=== PATIENT | male | born 1950 | race Caucasian/White ===

== ENCOUNTER 2019-10-08 12:51 | Inpatient (IN) | payer MEDICARE, MEDICAID ==
--- NOTE | 2019-10-08 13:03 | CT ---
EXAM: CT brain without contrast HISTORY: Left-sided weakness and right facial drooping COMPARISON: None TECHNIQUE: Multiple contiguous axial images were obtained and a CT of the brain without contrast. FINDINGS: The brain is normal in morphology and attenuation without focal lesions or confluent areas of infarction. There is no evidence of hydrocephalus, intracranial hemorrhage, or extra-axial fluid collection. The calvarium and overlying soft tissues are unremarkable. The visualized paranasal sinuses and masto id air cells are well aerated. IMPRESSION: No evidence of acute intracranial abnormality Dr. Iyer notified of findings at 1:01 PM on 10/08/2019
--- NOTE | 2019-10-08 13:19 | RAD ---
Portable chest: HISTORY: Stroke protocol COMPARISON: none FINDINGS: Lung centeno are clear. Heart and mediastinum appear unremarkable. Vascularity is normal. Visualized osseous structures unremarkable. IMPRESSION: No acute finding
--- NOTE | 2019-10-08 13:22 | CT ---
Exam: CTA neck with contrast CTA head with contrast HISTORY: Stroke with left-sided weakness and right facial drooping COMPARISON: None TECHNIQUE: 1. Multiple contiguous axial images were obtained and a CTA of the neck with contrast. 3-D sagittal a nd coronal MIP reformats were performed. 2. Multiple contiguous axial images were obtained and a CTA of the head with contrast. 3-D sagittal a nd coronal MIP reformats were performed. FINDINGS: CTA NECK: Aortic arch: Normal origin of the carotid arteries from the arch. No significant atherosclerotic dise ase of the subclavian arteries. Right common carotid artery: No significant atherosclerotic disease or narrowing Left common carotid artery: No significant atherosclerotic disease or narrowing Right internal carotid artery: No significant atherosclerotic disease or narrowing per NASCET criteri a Right external carotid artery: No significant atherosclerotic disease or narrowing Left internal carotid artery: No significant atherosclerotic disease or narrowing per NASCET criteri a Left external carotid artery: No significant atherosclerotic disease or narrowing Right cervical vertebral artery: No significant atherosclerotic disease or narrowing Left cervical vertebral artery: No significant atherosclerotic disease or narrowing No cervical adenopathy. The lung apices are unremarkable. The osseous structures are unremarkable. CTA HEAD: There is opacification of the right mastoid air cells with a small amount of fluid seen in the right middle ear. Right intracranial internal carotid artery: Patent without narrowing or occlusion Right anterior cerebral artery: Patent without narrowing or occlusion Right middle cerebral artery: Patent without narrowing or occlusion Left intracranial internal carotid artery: Patent without narrowing or occlusion Left anterior cerebral artery: Patent without narrowing or occlusion Left middle cerebral artery: Patent without narrowing or occlusion No aneurysmal dilatation is seen in the anterior circulation. Right vertebral artery: Patent without narrowing or occlusion Left vertebral artery: Patent without narrowing or occlusion Basilar artery: Patent without narrowing or occlusion The posterior cerebral arteries and cerebellar arteries are patent without narrowing or occlusion. No aneurysmal dilatation is seen in the posterior circulation. IMPRESSION: 1. No significant CTA abnormality of the neck 2. No significant CTA abnormality of the head
[2019-10-08 13:41] LABS: #Eosinphils 0.1 thou/uL (0.0-0.7); #Lymphocytes 0.9 thou/uL (1.20-3.40); #Monocytes 0.7 thou/uL (0.11-0.59); #Neutrophils 6.3 thou/uL (1.40-6.50); %Basophils 0.6 % (0.0-1.0); %Eosinophils 0.8 % (0.0-10.0); %Lymphocytes 11.4 % (21.0-51.0); %Monocytes 8.7 % (0.0-10.0); %Neutrophils 78.6 % (42.0-75.0); Mean Corpuscular HGB CONC 33.2 g/dL (32.0-36.0); Mean Corpuscular Volume 96.3 fL (78.0-98.0); Platelet Count 264 thou/uL (130-400); RBC Distribution Width 11.4 % (11.5-14.5); Red Blood Cell (RBC) Count 4.07 mill/uL (4.70-6.10)
[2019-10-08 13:46] LABS: INR-International Normal Ratio 1.1; PTT 28.7 SEC (22.9-36.1); Prothrombin Time 13.8 SEC (12.0-14.7)
[2019-10-08] MEDS ORDERED: Aspirin Chewable 81 MG TAB ONE (13:49)
[2019-10-08 13:52] LABS: ALT (SGPT) 13 U/L (8-55); AST (SGOT) 23 U/L (5-34); Albumin 3.8 g/dL (3.4-4.8); Alkaline Phosphatase 86 U/L (40-110); Anion Gap 16 mmol/L (10-20); BUN (Urea Nitrogen) 24 mg/dL (8.4-25.7); Bilirubin, Total 0.4 mg/dL (0.2-1.2); Calc. Creatinine Clearance 0 mL/min (70-130); Calcium 9.1 mg/dL (7.8-10.44); Carbon Dioxide 23 mmol/L (23-31); Chloride 100 mmol/L (98-107); Estimated GFR-MDRD 77; Globulin 2.8 g/dL (2.4-3.5); Glucose 116 mg/dL (80-115); Potassium 3.9 mmol/L (3.5-5.1); Protein, Total 6.6 g/dL (5.8-8.1); Sodium 135 mmol/L (136-145)
[2019-10-08] MEDS ORDERED: Iopamidol-370 76% 500 ML 1 ML ONE (13:55)
[2019-10-08 15:19] LABS: Bacteria/HPF None Seen HPF (None Seen); Bilirubin Negative (Negative); Blood, Urine Trace (Negative); Calcium Oxalate Crystals Rare HPF (None Seen); Clarity Clear (Clear); Glucose, Urine (Dipstick) Normal (Negative); Leukocyte 25 Leu/uL (Negative); Nitrite Negative (Negative); Protein, Urine (Dipstick) Negative (Neg-Trace); Squamous Epithelial None Seen HPF (0-3); Urobilinogen Normal mg/dL (Less than 2)
--- NOTE | 2019-10-08 15:41 | RAD ---
EXAM: 2 views of the left hip HISTORY: Left hip pain COMPARISON: None FINDINGS: 2 views of the left hip shows no evidence of acute fracture or dislocation. No degenerative changes are seen. No soft tissue swelling is present. Contrast is seen in the bladder and right ureter from prior contrast administration. No contrast is seen in the left ureter. IMPRESSION: No evidence of acute osseous abnormality.
[2019-10-08 17:23] LABS: Troponin I Less than 0.010 ng/mL (< 0.028)
[2019-10-08] MEDS ORDERED: Ondansetron PF 4 MG/2 ML Vial ONE (17:33)
[2019-10-08] MEDS ORDERED: Acetaminophen 325 MG TAB PO PRN (18:34)
[2019-10-08 18:55] VITALS: BMI 30.7
[2019-10-08 21:03] LABS: Troponin I Less than 0.010 ng/mL (< 0.028)
--- NOTE | 2019-10-08 21:20 | PDOC.HHP ---
Hospitalist HPI - History of Present Illness Left leg not working. Abd pain, nausea and vomniting, back and hip pain History of Present Illness: 69 YO M with a PMH of HTN, DM, CVA, Biplar d/o, GERD who was brought into the Er by his family on account account of sudden loss of movement in his left LE. Pt has always had mild LE but noted new onset inability to move his left leg. He was noted to be dragging his left leg. Pt was brought in as a stroke w/u. He had a CT brain and a CTA brain which were negative. However upon admission, pt has new complaints he is c/o severe abd pain and tenderness, with abd distention He feel he has an acute GERD exacerbation. He's also c/o severe pain in his lumbar area as well as left him. He denies hx of fever or chills or prior falls. Pt has been admitted for further admission. Hospitalist ROS - Review of Systems Constitutional: reports: weakness. denies: fever, chills, sweats, malaise, other Eyes: denies: pain, vision change, conjunctivae inflammation, eyelid inflammation, redness, other ENT: reports: ear pain Respiratory: denies: cough, dry, shortness of breath, hemoptysis, SOB with excertion, pleuritic pain, sputum, wheezing, other Cardiovascular: denies: chest pain, palpitations, orthopnea, paroxysmal noc. dyspnea, edema, light headedness, other Gastrointestinal: reports: nausea, vomiting, abdominal pain. denies: diarrhea, constipation, melena, hematochezia, other Genitourinary: denies: dysuria, frequency, incontinence, hematuria, retention, other Musculoskeletal: denies: neck pain, shoulder pain, arm pain, back pain, hand pain, leg pain, foot pain, other Neurological: reports: weakness, numbness. denies: incoordination, change in speech, confusion, seizures, other Hospitalist History - Past Medical History Cardiac: reports: HTN Pulmonary: reports: CVA/TIA/stroke Gastrointestinal: reports: GERD Psych: reports: Bipolar Musculoskeletal: reports: Chronic low back pain Renal/: reports: Benign prostatic enlarg. Endocrine: reports: Diabetes - Past Surgical History Past Surgical History: reports: Other Other Surgical History: Bladder Sx - Family History Family History: reports: diabetes mellitus - Social History Smoking Status: Never smoker Alcohol: reports: None Drugs: reports: none Living Situation: With Family Domestic Violence: Negative - Exam General Appearance: ill appearing Eye: PERRL, anicteric sclera ENT: normocephalic atraumatic, no oropharyngeal lesions, moist mucosa Neck: supple, symmetric, no JVD, no thyromegaly Heart: RRR, no murmur, no gallops, no rubs, normal peripheral pulses Respiratory: CTAB, no wheezes, no rales, no ronchi, normal chest expansion Gastrointestinal: soft, normal bowel sounds Gastrointestinal - other findings: Pt abd is grossly tender and mildly distended Extremities: no cyanosis, no clubbing, no edema Skin: normal turgor, no lesions, no rashes Neurological: cranial nerve grossly intact, no focal deficits Musculoskeletal: normal tone, normal strength, no muscle wasting Musculoskeletal - other findings: Decreased strength in LLE Psychiatric: normal affect, normal behavior, A&O x 3 Hospitalist Results - Labs Result Diagrams: 10/08/19 13:27 10/08/19 13:27 Lab results: WBC 8.0 thou/uL (4.8-10.8) 10/08/19 13:27 Hgb 13.0 g/dL (14.0-18.0) L 10/08/19 13:27 Hct 39.2 % (42.0-52.0) L 10/08/19 13:27 MCV 96.3 fL (78.0-98.0) 10/08/19 13:27 Plt Count 264 thou/uL (130-400) 10/08/19 13:27 Neutrophils % 78.6 % (42.0-75.0) H 10/08/19 13:27 Sodium 135 mmol/L (136-145) L 10/08/19 13:27 Potassium 3.9 mmol/L (3.5-5.1) 10/08/19 13:27 Chloride 100 mmol/L (98-107) 10/08/19 13:27 Carbon Dioxide 23 mmol/L (23-31) 10/08/19 13:27 BUN 24 mg/dL (8.4-25.7) 10/08/19 13:27 Creatinine 0.97 mg/dL (0.7-1.3) 10/08/19 13:27 Glucose 116 mg/dL (80-115) H 10/08/19 13:27 Calcium 9.1 mg/dL (7.8-10.44) 10/08/19 13:27 Total Bilirubin 0.4 mg/dL (0.2-1.2) 10/08/19 13:27 AST 23 U/L (5-34) 10/08/19 13:27 ALT 13 U/L (8-55) 10/08/19 13:27 Alkaline Phosphatase 86 U/L (40-110) 10/08/19 13:27 Troponin I Less than 0.010 ng/mL (< 0.028) 10/08/19 20:25 Serum Total Protein 6.6 g/dL (5.8-8.1) 10/08/19 13:27 Albumin 3.8 g/dL (3.4-4.8) 10/08/19 13:27 Urine Ketones Negative mg/dL (Negative) 10/08/19 15:00 Urine Blood Trace (Negative) A 10/08/19 15:00 Urine Nitrite Negative (Negative) 10/08/19 15:00 Ur Leukocyte Esterase 25 Kim/uL (Negative) 10/08/19 15:00 Urine RBC 7-10 HPF (0-3) A 10/08/19 15:00 Urine WBC 4-6 HPF (0-3) A 10/08/19 15:00 Ur Squamous Epith Cells None Seen HPF (0-3) 10/08/19 15:00 Urine Bacteria None Seen HPF (None Seen) 10/08/19 15:00 Hospitalist H&P A/P - Problem (1) Abdominal pain Code(s): R10.9 - UNSPECIFIED ABDOMINAL PAIN Status: Acute Qualifiers: Abdominal location: generalized Qualified Code(s): R10.84 - Generalized abdominal pain Assessment and Plan: Unclear etiology. Will like to r/o a perforation vs acute GERD, will keep NPO, check KUB and CT abd . Give PPI and pain meds. (2) CVA (cerebral vascular accident) Code(s): I63.9 - CEREBRAL INFARCTION, UNSPECIFIED Status: Acute Assessment and Plan: Pt has new onset LLE inability. Will get MRI brain and Lumbar CT, will f/u with results. (3) Nausea & vomiting Code(s): R11.2 - NAUSEA WITH VOMITING, UNSPECIFIED Status: Acute Assessment and Plan: May be from GERD. Will give Zofran (4) GERD (gastroesophageal reflux disease) Code(s): K21.9 - GASTRO-ESOPHAGEAL REFLUX DISEASE WITHOUT ESOPHAGITIS Status: Acute Qualifiers: Esophagitis presence: without esophagitis Qualified Code(s): K21.9 - Gastro -esophageal reflux disease without esophagitis Assessment and Plan: start PPI (5) HTN (hypertension) Code(s): I10 - ESSENTIAL (PRIMARY) HYPERTENSION Status: Acute Qualifiers: Hypertension type: essential hypertension Qualified Code(s): I10 - Essential (primary) hypertension Assessment and Plan: Unsure if pt has an acute CVA will allow permissive HTN (6) Diabetes Code(s): E11.9 - TYPE 2 DIABETES MELLITUS WITHOUT COMPLICATIONS Status: Acute Qualifiers: Diabetes mellitus type: type 2 Diabetes mellitus complication status: without complication Assessment and Plan: Hold all meds as pt will be NPO. Cover with SSI (7) BPH (benign prostatic hyperplasia) Code(s): N40.0 - BENIGN PROSTATIC HYPERPLASIA WITHOUT LOWER URINRY TRACT SYMP Status: Acute Qualifiers: Lower urinary tract symptom detail: urinary obstruction Assessment and Plan: With outlet obstruction. Cont with indwelling hampton. - Plan Plan: PPx: SCDs and PPI. CODE: FULL. Dispo: Admit as inpt.
[2019-10-08] MEDS ORDERED: HYDROcodone/Acetaminophen 5/325 mg Tablet PO PRN (21:30)
[2019-10-08] MEDS ORDERED: HYDROcodone/Acetaminophen 10/325 mg Tablet PO PRN (21:30)
[2019-10-08] MEDS ORDERED: Ondansetron PF 4 MG/2 ML Vial IVP PRN (21:30)
[2019-10-08] MEDS ORDERED: Sodium Chloride 0.9% (PF) 10 ML VIAL FS PRN (21:35)
[2019-10-08] MEDS ORDERED: Morphine 2 MG/ML SYRINGE SLOW IVP PRN (21:35)
--- NOTE | 2019-10-08 21:49 | RAD ---
EXAM: XR Abdomen 1 View/KUB PROVIDED CLINICAL HISTORY: Severe abdominal tenderness COMPARISON: 01/31/2014 FINDINGS: Bowel gas pattern is nonspecific with moderate amount of retained fecal material seen in the region o f the ascending and transverse colon as well as in the rectum. There is contrast seen within a mildly dilated right renal collecting system. No suspicious calcifications are seen. A suprapubic cat heter versus Pompa catheter overlies the midline of the pelvis. IMPRESSION: 1. Moderate amount retained fecal material in the ascending colon and in the rectum. 2. Mild right hydronephrosis as evidenced by residual contrast in right renal collecting system.
--- NOTE | 2019-10-08 22:01 | CT ---
CT Abdomen Pelvis WO Con 10/08/2019 8:56 PM HISTORY: Abdominal distention and abdominal pain. Nausea and vomiting. Lower back pain. History of neurogenic bladder. COMPARISON: 03/24/2016 Technique: Multiple contiguous axial CT images are obtained through the abdomen and pelvis without IV contrast. Coronal reformats are provided. FINDINGS: This examination is limited for the evaluation of solid organs and vascular structures due to the lac k of intravenous contrast. Lower Chest: Calcified granuloma is present the right lung base. Lung bases are otherwise clear. Abdomen: Liver: Grossly normal non-enhanced CT appearance. Gallbladder: Vicarious excretion of contrast in the gallbladder related to recent contrasted study. Pancreas: Grossly normal nonenhanced CT appearance. Spleen: Grossly normal nonenhanced CT appearance. Adrenals: Grossly normal nonenhanced CT appearance. Kidneys: There is mild right hydronephrosis and hydroureter with contrast seen in the right renal col lecting system and ureter due to recent contrasted exam. A suprapubic catheter is noted in place, but the tip of the suprapubic catheter is seen extending into the region of the right UVJ and is like ly the etiology for partial obstruction on the right. The left kidney demonstrates a normal nonenhanced CT appearance, and there is no hydronephrosis seen on the left. Left ureter is not dilate d, and there is contrast seen in portions of the left ureter. Pelvis: Urinary bladder: Suprapubic catheter is noted in place in the urinary bladder is mostly decompressed. Logan of the urinary bladder are mildly thickened. Reproductive Organs: No pelvic masses. Lymph Nodes: No enlarged lymph nodes. Bowel: There is a moderate amount of retained fecal material seen in the ascending transverse colon w ith larger amount of retained fecal material seen in the rectum, and the rectum is dilated measuring 7.6 cm suggesting fecal impaction. Peritoneum: No free fluid, free air, or fluid collection. Retroperitoneum: within normal limits. Vessels: Vascular calcifications are again seen in the abdominal aorta and involving the iliac arteri es.. Abdominal Wall: within normal limits. Bones: No suspicious lytic or sclerotic osseous lesions are identified. Bone island is again seen wit hin the left proximal femur. IMPRESSION: 1. Right hydronephrosis and hydroureter secondary to the tip of the suprapubic catheter extending int o the region of the right UVJ. 2. No left hydronephrosis is present. Contrast is seen in the renal collecting systems and each urete r related to recent contrasted exam. This precludes evaluation for renal calculi. 3. Evidence of fecal impaction with large amount of retained fecal material in the rectum which is di lated measuring 7.6 cm. There is a moderate amount of retained fecal material in the ascending and transverse colon. 4. Mild thickening of the logan the urinary bladder. Urinary bladder is mostly decompressed.
--- NOTE | 2019-10-08 22:50 | CT ---
CT PELVIS: History: Left hip pain. FINDINGS: As noted on CT of the abdomen/pelvis obtained on this date, a suprapubic catheter is noted in place w ith the tip of the suprapubic catheter tubing extending into the region of the right UVJ resulting in at least partial obstruction of the right ureter with dilatation of the right ureter with persistent contrast in the right ureter from prior contrasted exam. The urinary bladder is mostly decompressed, but the logan of the urinary bladder are mildly thickened with minimal adjacent inflammatory changes. Findings could be related to cystitis in the correct cli nical scenario but thickening of the urinary bladder wall could be related to long-standing neurogeni c bladder. There is a large amount of retained fecal material seen in the rectum which is dilated as described o n CT abdomen/pelvis. Images are suggestive of fecal impaction. A sclerotic lesion is seen within the left femoral head/neck junction which demonstrates what appears to be interdigitated margins, probably representing a prominent bone island, larger in size compared to the study in 2016. This density measures 7 mm. No fracture is seen involving the pelvis. There is no evidence of dislocation involving the hips bila terally. IMPRESSION: 1. Partial obstruction of right ureter secondary to suprapubic catheter tip extending into the right UVJ resulting in obstruction. 2. Thickening of the logan of the urinary bladder with adjacent minimal daniel vesicle inflammatory rasheed nges. Findings could be related to cystitis in the correct clinical scenario. 3. Evidence of fecal impaction with a large amount of retained fecal material in the rectum which is dilated. 4. No acute osseous abnormality is seen. 5. Density left femoral head/neck junction, probably related to a bone island. POS: JUAN M
[2019-10-08] MEDS ORDERED: Aluminum & Magnesium Hydroxide 60 ML, Lidocaine 2% Viscous Solution 30 ML, diphenhydrAM... SSW ONE (23:00)
[2019-10-09 05:20] LABS: #Basophils 0.1 thou/uL (0.0-0.2); #Eosinphils 0.2 thou/uL (0.0-0.7); #Lymphocytes 2.3 thou/uL (1.20-3.40); #Monocytes 0.8 thou/uL (0.11-0.59); #Neutrophils 3.8 thou/uL (1.40-6.50); %Basophils 0.9 % (0.0-1.0); %Eosinophils 2.9 % (0.0-10.0); %Lymphocytes 31.4 % (21.0-51.0); %Monocytes 11.2 % (0.0-10.0); %Neutrophils 53.6 % (42.0-75.0); Hemoglobin 13.4 g/dL (14.0-18.0); Mean Corpuscular Hemoglobin 31.6 pg (27.0-31.0); Mean Corpuscular Volume 98.9 fL (78.0-98.0); Platelet Count 259 thou/uL (130-400); RBC Distribution Width 11.6 % (11.5-14.5); Red Blood Cell (RBC) Count 4.25 mill/uL (4.70-6.10); White Blood Cell (WBC) Count 7.2 thou/uL (4.8-10.8)
[2019-10-09 06:11] LABS: BUN (Urea Nitrogen) 15 mg/dL (8.4-25.7); Calc. Creatinine Clearance 72 mL/min (70-130); Carbon Dioxide 18 mmol/L (23-31); Chloride 106 mmol/L (98-107); Estimated GFR-MDRD Greater than 90; Glucose 106 mg/dL (80-115); Potassium 5.3 mmol/L (3.5-5.1); Sodium 135 mmol/L (136-145)
[2019-10-09 06:12] LABS: Anion Gap 16 mmol/L (10-20)
[2019-10-09] MEDS: Enoxaparin Sodium 40 MG/0.4 ML SYRINGE SC SCH (08:58)
[2019-10-09] MEDS: Pantoprazole 40 MG VIAL IVP SCH ×2 (09:01→21:25)
[2019-10-09] MEDS ORDERED: Mineral Oil ENEMA PR SCH (11:30)
[2019-10-09] MEDS ORDERED: Magnevist 469MG/ML 20 ML VIAL ONE ×2 (13:35→13:36)
--- NOTE | 2019-10-09 13:52 | MRI ---
EXAM: MRI of the brain without contrast HISTORY: Right facial drooping COMPARISON: 10/02/2014 TECHNIQUE: Multiplanar multisequence MR images were obtained of the brain without IV contrast. FINDINGS: The brain demonstrates normal signal intensity on all obtained sequences. No restricted diffusion. No hydronephrosis. No extra-axial fluid collection or intracranial hemorrhage. The expected flow voids are present. Corpus callosum, pituitary, and craniocervical junction are within normal limits. The calvarium and overlying soft tissues are unremarkable. The paranasal sinuses and mastoid air cells are well aerated. IMPRESSION: No evidence of acute intracranial abnormality.
--- NOTE | 2019-10-09 17:29 | PDOC.HOSPP ---
- Subjective Subjective: Pt feels somewhat better today. - Objective Vital Signs & Weight: Vital Signs (12 hours) Temp Pulse Pulse Pulse Resp BP BP 10/09/19 15:37 99.0 F 63 14 10/09/19 11:22 98.2 F 100 19 10/09/19 10:39 72 74 119/72 121/74 10/09/19 07:44 98.6 F 78 16 BP Pulse Ox 10/09/19 15:37 111/67 99 10/09/19 11:22 101/61 72 L 10/09/19 10:39 10/09/19 07:44 120/72 98 Weight Weight 132 lb I&O: 10/08/19 10/09/19 10/10/19 06:59 06:59 06:59 Output Total 1150 430 Balance -1150 -430 Result Diagrams: 10/09/19 04:35 10/09/19 04:35 Hospitalist ROS - Review of Systems Constitutional: denies: fever, chills, sweats, weakness, malaise, other Eyes: denies: pain, vision change, conjunctivae inflammation, eyelid inflammation, redness, other ENT: denies: ear pain, ear discharge, nose pain, nose discharge, nose congestion , mouth pain, mouth swelling, throat pain, throat swelling, other Respiratory: denies: cough, dry, shortness of breath, hemoptysis, SOB with excertion, pleuritic pain, sputum, wheezing, other Cardiovascular: denies: chest pain, palpitations, orthopnea, paroxysmal noc. dyspnea, edema, light headedness, other Gastrointestinal: reports: abdominal pain. denies: nausea, vomiting, diarrhea, constipation, melena, hematochezia, other Genitourinary: denies: dysuria, frequency, incontinence, hematuria, retention, other Musculoskeletal: reports: back pain. denies: neck pain, shoulder pain, arm pain , hand pain, leg pain, foot pain, other Skin: denies: rash, lesions, angela, bruising, other Neurological: reports: weakness. denies: numbness, incoordination, change in speech, confusion, seizures, other Other: Still unable to move his LLE. - Medication Medications: Active Medications Generic Name Dose Route Start Last Admin Trade Name Freq PRN Reason Stop Dose Admin Enoxaparin Sodium 40 mg 10/09/19 09:00 10/09/19 08:58 Lovenox SC 40 mg 0900 NBA Administration Pantoprazole Sodium 40 mg 10/09/19 09:00 10/09/19 09:01 Protonix IVP 40 mg Q12HR NBA Administration - Exam General Appearance: NAD, awake alert Eye: PERRL, anicteric sclera ENT: normocephalic atraumatic, no oropharyngeal lesions, moist mucosa Neck: supple, symmetric, no JVD, no thyromegaly, no lymphadenopathy Heart: RRR, no murmur, no gallops, no rubs, normal peripheral pulses Respiratory: CTAB, no wheezes, no rales, no ronchi, normal chest expansion Gastrointestinal: soft, normal bowel sounds Gastrointestinal - other findings: slightly tender, slightly distemded Extremities: no cyanosis, no clubbing, no edema Skin: normal turgor, no lesions, no rashes Neurological: cranial nerve grossly intact, no focal deficits Musculoskeletal: normal tone, normal strength, no muscle wasting Psychiatric: normal affect, normal behavior, A&O x 3 Hosp A/P (1) Constipation Code(s): K59.00 - CONSTIPATION, UNSPECIFIED Status: Acute Plan: Likely cause of abd pain. Will give enema and Lactulose. Monitor for BM. Start on daily Miralax. - Plan - Problem (1) Abdominal pain Code(s): R10.9 - UNSPECIFIED ABDOMINAL PAIN Status: Acute Qualifiers: Abdominal location: generalized Qualified Code(s): R10.84 - Generalized abdominal pain Assessment and Plan: Unclear etiology. CT scan shows large burden of constipation and urinary obstruction and hydronephrosis. This is likely reason for pt's pain Urology has been consult, will treat constipation. Will resume diet. Give PPI and pain meds. (2) CVA (cerebral vascular accident) Code(s): I63.9 - CEREBRAL INFARCTION, UNSPECIFIED Status: Acute Assessment and Plan: Pt has new onset inability to move his LLE. MRI brain and Lumbar CT are both neg. Pt and his family are still concerned why he had a sudden inability to move his LLE, so will get MRI of lumbar spine. Will f/u results. Cont PT/OT. (3) Nausea & vomiting Code(s): R11.2 - NAUSEA WITH VOMITING, UNSPECIFIED Status: Acute Assessment and Plan: May be from GERD vs constipation. Will give Zofran, monitor for symp relief. (4) GERD (gastroesophageal reflux disease) Code(s): K21.9 - GASTRO-ESOPHAGEAL REFLUX DISEASE WITHOUT ESOPHAGITIS Status: Acute Qualifiers: Esophagitis presence: without esophagitis Qualified Code(s): K21.9 - Gastro -esophageal reflux disease without esophagitis Assessment and Plan: Cont PPI (5) HTN (hypertension) Code(s): I10 - ESSENTIAL (PRIMARY) HYPERTENSION Status: Acute Qualifiers: Hypertension type: essential hypertension Qualified Code(s): I10 - Essential (primary) hypertension Assessment and Plan: No CVA seen on MRI, will resume prior home BP meds. (6) Diabetes Code(s): E11.9 - TYPE 2 DIABETES MELLITUS WITHOUT COMPLICATIONS Status: Acute Qualifiers: Diabetes mellitus type: type 2 Diabetes mellitus complication status: without complication Assessment and Plan: Pt will now be started on a DM diet, will resume home meds. Cover with SSI (7) BPH (benign prostatic hyperplasia) Code(s): N40.0 - BENIGN PROSTATIC HYPERPLASIA WITHOUT LOWER URINRY TRACT SYMP Status: Acute Qualifiers: Lower urinary tract symptom detail: urinary obstruction Assessment and Plan: With outlet obstruction. Cont with indwelling hampton. Urology has been consulted. Plan: Discussed with pts' POA on the phone and updated her. PPx: SCDs and PPI. CODE: FULL. Dispo: Cont current mgt.
--- NOTE | 2019-10-09 18:01 | MRI ---
MRI THORACIC SPINE WITH AND WITHOUT CONTRAST: Indications: Bilateral leg weakness. FINDINGS: Thoracic vertebrae maintain normal height and alignment. Vertebral body signal is normal. There are m ild degenerative changes noted with very mild spurring. No evidence of vertebral body lesion. Review of the disc spaces shows a small focal protrusion paracentrally on the right at T2-3. This eff aces the anterior subarachnoid space on the right and impinges on the anterior cord on the right at t his level, best seen on axial T2. No other significant disc bulge or protrusion identified. Thoracic cord signal appears normally preserved. There is some heterogeneity in the cord on T2 axial which is felt to primarily be due to motion artifact. There is no abnormal enhancement seen within the cord on post contrast study. IMPRESSION: 1. Focal disc protrusion on the right at T2-3. 2. Thoracic spine otherwise unremarkable. No evidence of thoracic cord abnormality identified. POS: SACHIN
--- NOTE | 2019-10-09 18:13 | MRI ---
MRI OF LUMBAR SPINE PERFORMED WITH AND WITHOUT CONTRAST ENHANCEMENT: History: Bilateral leg weakness. Patient cannot walk, by history. Comparison: 10-08-2019 CT examination. FINDINGS: The vertebral bodies are normal in height. Disc space height all appears fairly well preserved. No si gnificant periaortic adenopathy. Right sided hydronephrosis and hydroureter again noted. This was not ed on the previous CT examination. There is motion artifact which degrades detail, particularly on th e contrast portion of the study. Review of the disc levels show degenerative facet changes along the course of the spine. There is no significant disc narrowing at any of the vertebral body levels and n o significant foraminal stenosis. Some minimal disc bulge at the L4-5 level. No signs of any epidural collection. No areas of abnormal contrast enhancement are appreciated on the somewhat limited post c ontrast study due to motion. IMPRESSION: 1. Moderate right sided hydronephrosis and hydroureter which has been previously described on previou s CT. 2. No signs of canal or foraminal stenosis. No signs of any type of discitis type change. POS: JUAN M
--- NOTE | 2019-10-09 23:12 | CON ---
DATE OF CONSULTATION: 10/09/2019 CONSULTING: Hospitalist. REASON FOR CONSULTATION: Hydronephrosis with SP tube. HISTORY OF PRESENT ILLNESS: Mr. Church is a 69-year-old white male, who is well known to me for his history of hypertension, diabetes, CVA, and bipolar disease with mental handicaps, who is currently managed with an SP tube. He does have elements of neurogenic bladder along with obstructive features and due to his comorbidities and poorly functioning bladder, has elected for indwelling SP tube indefinitely. He is managed in our office with this. He came into the hospital with severe abdominal pain and tenderness with distention. He has been having yellow non bilious vomiting along with very poor appetite. He ultimately underwent a CT scan which demonstrated severe fecal impaction with a large amount of stool in the rectum, which was dilated up to 7.6 cm. The fecal impaction had gone all the way back to the ascending colon. Also of note, there was right hydronephrosis and right hydroureter going down to the ureterovesical junction, where the tip of the suprapubic catheter was extending into the same region. There was no left hydronephrosis present. Ureteral calculi could not be entirely excluded secondary to contrast being administered and contrast being present within the ureter. On my discussion with the patient, he is still complaining of abdominal pain. He has not vomited recently, but he has no appetite. He is having a lot of bladder spasms and discomfort with his SP tube. He denies any flank pain and states that all of his pain has been in his abdominal area. His urine has been clear and he denies any hematuria. He has not had any fevers. Of note, he has already been given an enema as well as lactulose and bowel movement has not yet occurred. ALLERGIES: PENICILLIN. HOME MEDICATIONS: 1. Aspirin. 2. Humalog. 3. Levemir FlexTouch. 4. B12. 5. Vitamin D3 with calcium. 6. Singulair. 7. Metformin. 8. Furosemide. 9. Levaquin. 10. Colace. 11. Cozaar. 12. Oxybutynin extended release. 13. Atorvastatin. 14. Trazodone. PAST MEDICAL HISTORY: 1. Hypertension. 2. History of CVA and TIA. 3. Gastroesophageal reflux disease. 4. Bipolar disease. 5. Chronic lower back pain. 6. BPH. 7. Diabetes mellitus type 2. 8. Urinary retention. PAST SURGICAL HISTORY: SP tube placement. FAMILY HISTORY: Significant for diabetes mellitus. SOCIAL HISTORY: The patient does not smoke. He does not drink alcohol. He does not use any illicit drugs. He currently lives with his family. REVIEW OF SYSTEMS: A 12-point review of systems is reviewed and negative other than what was commented on the HPI. PHYSICAL EXAMINATION: VITAL SIGNS: Temperature 99, pulse 63, respirations 14, blood pressure 111/67, saturation 99% on room air. GENERAL: No apparent distress, communicative and alert, well-nourished, well-developed, appears stated age, answering questions relatively appropriately. HEENT: Normocephalic, atraumatic. Pupils are symmetric and round. Sclerae are nonicteric. Moist mucous membranes. Trachea midline. CARDIOVASCULAR: Regular rate and rhythm. Normal S1, S2. Symmetric pulses. CHEST: No increased work of breathing, symmetric expansion. LUNGS: Clear anteriorly. ABDOMEN: Soft, moderately distended, mildly tender to palpation in all quadrants, specifically in the hypogastric area. SP tube is currently in good location, draining clear yellow urine. No surrounding erythema or cellulitis. No organomegaly. No rebound, guarding, or peritoneal signs. Positive bowel sounds. : Penis is uncircumcised, nonfocal, no lesions. Bilateral descended testes. RECTAL: Deferred at this time. EXTREMITIES: No clubbing, cyanosis, or edema. MUSCULOSKELETAL: No joint deformities or joint erythema noted. Full range of motion. SKIN: Warm and dry. No rashes or lesions. Good turgor. PSYCHIATRIC: Alert and oriented x2. Appropriate mood and affect. There is some MR present, but patient for the most part, able to communicate appropriately and answer questions correctly. LABORATORY DATA: On laboratory evaluation, full set of labs are in the [employer] system, which I have reviewed. Of note, the patient's white count is 7.2 with hemoglobin of 13.4. Creatinine is currently 0.83, sodium of 135. CT with contrast on October 08 demonstrates right hydronephrosis and hydroureter secondary to the suprapubic catheter, which is extending into the region of the right UVJ. No left hydronephrosis could not be evaluated secondary to contrast, significant fecal impaction with a dilated rectum up to 7.6 cm and stool all the way up to the ascending colon. ASSESSMENT AND PLAN: A 69-year-old white male with severe fecal impaction resulting in obstipation, likely abdominal distention and nausea and vomiting. This appears to all be secondary to his severe constipation. The patient is already receiving enemas and lactulose. If this is unsuccessful, may consider a black and white treatment with cascara and milk of magnesia. If that is also unsuccessful, would recommend manual disimpaction as majority of the patient's problem is being stemmed by his constipation. This also with the amount of rectal dilation cause elevation of the bladder and push the bladder toward the suprapubic catheter, which can result in the hydronephrosis either from the stool impaction or from pushing the catheter tip into the ureterovesical junction. I have changed to suprapubic catheter today to a 22-Vietnamese Pom[place] catheter with 10 mL balloon, which should decrease the catheter tip size and get it further away from the ureterovesical junction, which should help the hydronephrosis, but ultimately the problem is not the SP tube or his bladder, but just the constipation. This needs to be aggressively managed, which has already been started. From my standpoint, I do not think there is anything further, but I would that I need to do, but I recommend that once the patient has been completely cleaned out from his bowels, would recommend repeating a renal ultrasound the day after he has been completely disimpacted. If there is persistence of hydronephrosis, would recommend getting a CT without contrast to evaluate for stone disease. I will continue to follow along and make recommendations as needed. PROCEDURE REPORT: The patient had an SP tube changed under sterile technique. The patient's old suprapubic catheter was removed. A 22-Vietnamese Pom[place] catheter with 10 mL balloon was inserted without any difficulty into the patient's bladder. 10 mL of sterile water was placed into the balloon and hooked up to gravity drainage. The patient tolerated the procedure well. Job ID: [id number]
[2019-10-10 05:46] LABS: %Basophils 1.5 % (0.0-1.0); %Eosinophils 2.7 % (0.0-10.0); %Lymphocytes 27.6 % (21.0-51.0); %Monocytes 8.2 % (0.0-10.0); Hemoglobin 13.4 g/dL (14.0-18.0); Mean Corpuscular HGB CONC 32.8 g/dL (32.0-36.0); Mean Corpuscular Hemoglobin 31.3 pg (27.0-31.0); Mean Corpuscular Volume 95.4 fL (78.0-98.0); Mean Platelet Volume 7.1 fL (7.4-10.4); Platelet Count 286 thou/uL (130-400); RBC Distribution Width 11.5 % (11.5-14.5); Red Blood Cell (RBC) Count 4.28 mill/uL (4.70-6.10); White Blood Cell (WBC) Count 8.2 thou/uL (4.8-10.8)
[2019-10-10 05:47] LABS: #Basophils 0.1 thou/uL (0.0-0.2); #Eosinphils 0.2 thou/uL (0.0-0.7); #Lymphocytes 2.3 thou/uL (1.20-3.40); #Monocytes 0.7 thou/uL (0.11-0.59); #Neutrophils 4.9 thou/uL (1.40-6.50)
[2019-10-10] MEDS ORDERED: Artificial Tears 18 DROP/0.9 ML EA EYE PRN (05:56)
[2019-10-10 06:06] LABS: Anion Gap 11 mmol/L (10-20); BUN (Urea Nitrogen) 11 mg/dL (8.4-25.7); Calc. Creatinine Clearance 78 mL/min (70-130); Calcium 8.6 mg/dL (7.8-10.44); Carbon Dioxide 24 mmol/L (23-31); Chloride 105 mmol/L (98-107); Estimated GFR-MDRD Greater than 90; Glucose 104 mg/dL (80-115); Potassium 3.9 mmol/L (3.5-5.1); Sodium 136 mmol/L (136-145)
[2019-10-10] MEDS: Enoxaparin Sodium 40 MG/0.4 ML SYRINGE SC SCH (08:56)
[2019-10-10] MEDS: Pantoprazole 40 MG VIAL IVP SCH (08:57)
--- NOTE | 2019-10-10 18:46 | PDOC.HOSPP ---
- Subjective Encounter Date: 10/10/19 Encounter Time: 18:40 Subjective: f/u for abd pain, obstipation causing urinary retention and hydronephrosis due to obstructed SPT. + BM's per pt report and feels better overall. Still weak and unsteady on feet. Hx of falls at home. - Objective Vital Signs & Weight: Vital Signs (12 hours) Temp Pulse Pulse Resp BP BP Pulse Ox 10/10/19 15:54 98.8 F 70 16 113/68 99 10/10/19 13:43 67 107/71 10/10/19 11:43 97.9 F 70 18 115/74 98 10/10/19 08:00 97.6 F 65 18 115/68 98 Weight Weight 132 lb I&O: 10/09/19 10/10/19 10/11/19 06:59 06:59 06:59 Intake Total 120 Output Total 2994 696 8938 Balance -4520 -310 -1620 Result Diagrams: 10/10/19 04:54 10/10/19 04:54 Additional Labs: Accuchecks 10/10/19 10/10/19 10/10/19 16:59 10:53 00:33 POC Glucose 137 H 168 H 97 10/09/19 21:32 POC Glucose 147 H Radiology Reviewed by me: Yes (MRI brain/T-/L-spine negative) EKG Reviewed by me: Yes (Tele - SR) Hospitalist ROS - Medication Medications: Active Medications Generic Name Dose Route Start Last Admin Trade Name Freq PRN Reason Stop Dose Admin Enoxaparin Sodium 40 mg 10/09/19 09:00 10/10/19 08:56 Lovenox SC 40 mg 0900 NBA Administration Pantoprazole Sodium 40 mg 10/09/19 09:00 10/10/19 08:57 Protonix IVP 40 mg Q12HR NBA Administration - Exam General Appearance: NAD, awake alert Eye: PERRL, anicteric sclera ENT: normocephalic atraumatic, no oropharyngeal lesions Neck: supple, symmetric, no JVD, no thyromegaly Heart: RRR, no murmur, no gallops, no rubs, normal peripheral pulses Respiratory: CTAB, no wheezes, no rales, no ronchi, normal chest expansion Gastrointestinal: soft, non-tender, non-distended, normal bowel sounds Extremities: no cyanosis, no clubbing, no edema Skin: normal turgor, no lesions Neurological: cranial nerve grossly intact, no new deficit Neurological - other findings: LLE weakness Musculoskeletal: normal tone, generalized weakness Psychiatric: normal affect, A&O x 3 Hosp A/P (1) Abdominal pain Code(s): R10.9 - UNSPECIFIED ABDOMINAL PAIN Status: Acute Qualifiers: Abdominal location: generalized Qualified Code(s): R10.84 - Generalized abdominal pain Plan: Secondary to constipation/urinary retention/hydronephrosis, improved with BM's (2) Constipation Code(s): K59.00 - CONSTIPATION, UNSPECIFIED Status: Acute Qualifiers: Constipation type: slow transit constipation Qualified Code(s): K59.01 - Slow transit constipation Plan: Continue bowel regimen, Mag Citrate/Senokot-S/Miralax (3) BPH (benign prostatic hyperplasia) Code(s): N40.0 - BENIGN PROSTATIC HYPERPLASIA WITHOUT LOWER URINRY TRACT SYMP Status: Chronic Qualifiers: Lower urinary tract symptom detail: urinary obstruction Plan: SPT in place (4) GERD (gastroesophageal reflux disease) Code(s): K21.9 - GASTRO-ESOPHAGEAL REFLUX DISEASE WITHOUT ESOPHAGITIS Status: Chronic Qualifiers: Esophagitis presence: without esophagitis Qualified Code(s): K21.9 - Gastro -esophageal reflux disease without esophagitis Plan: Change Protonix 40mg po daily (5) HTN (hypertension) Code(s): I10 - ESSENTIAL (PRIMARY) HYPERTENSION Status: Chronic Qualifiers: Hypertension type: essential hypertension Qualified Code(s): I10 - Essential (primary) hypertension Plan: Resume home BP regimen, monitor clinical response - Plan plan discussed w/ family, PT/OT, social secretary, out of bed/ambulate, DVT proph w/SCDs Stable currently Continue bowel regimen OOB with PT CM for SNF options Resume home BP meds Likely d/c in 24-48h
[2019-10-10] MEDS ORDERED: Magnesium Citrate 300 ML BOT PO SCH (19:15)
[2019-10-10] MEDS ORDERED: Polyethylene Glycol 3350 17 GM Packet PO SCH (20:00)
[2019-10-10] MEDS ORDERED: Non-Formulary Item 1 EACH (Insulin Detemir [Levemir Flextouch] 15 UNITS) SC SCH (21:00)
[2019-10-10] MEDS: Senokot S 8.6-50 MG TAB PO SCH (21:04)
[2019-10-10] MEDS: Atorvastatin Calcium 40 MG TAB PO SCH (21:04)
[2019-10-10] MEDS: Montelukast Sodium 10 mg Tablet PO SCH (21:04)
[2019-10-10] MEDS: traZODone HCl 50 MG TAB PO SCH (21:18)
[2019-10-10] MEDS: Insulin Glargine 15 UNITS in Pre-Filled Syringe 1 EACH SC SCH (21:19)
[2019-10-11] MEDS: Polyethylene Glycol 3350 17 GM Packet PO SCH (08:33)
[2019-10-11] MEDS: Aspirin Chewable 81 MG TAB PO SCH (08:33)
[2019-10-11] MEDS: Senokot S 8.6-50 MG TAB PO SCH ×2 (08:33→23:04)
[2019-10-11] MEDS: Cyanocobalamin (Vitamin B-12) 1,000 MCG TAB PO SCH (08:33)
[2019-10-11] MEDS: metFORMIN 500 MG TAB PO SCH ×2 (08:33→18:12)
[2019-10-11] MEDS: Oxybutynin ER 5 MG TAB PO SCH (08:37)
--- NOTE | 2019-10-11 20:28 | PDOC.HOSPP ---
- Subjective Encounter Date: 10/11/19 Encounter Time: 16:10 Subjective: f/u for deconditioning, constipation resulting in urinary retention and hydronephrosis. + multiple BM's last pm and this am. - Objective Vital Signs & Weight: Vital Signs (12 hours) Temp Pulse Pulse Resp BP BP Pulse Ox 10/11/19 19:43 98.1 F 76 16 119/61 100 10/11/19 15:16 97.6 F 71 16 97/63 97 10/11/19 14:45 69 105/63 10/11/19 11:32 97.9 F 78 18 102/61 98 10/11/19 08:28 99 Weight Weight 132 lb I&O: 10/10/19 10/11/19 10/12/19 06:59 06:59 06:59 Intake Total 120 730 480 Output Total 430 2820 950 Balance -310 -2090 -470 Result Diagrams: 10/10/19 04:54 10/10/19 04:54 Additional Labs: Accuchecks 10/11/19 10/10/19 06:17 20:14 POC Glucose 125 H 260 H EKG Reviewed by me: Yes (Tele - SR) Hospitalist ROS - Medication Medications: Active Medications Generic Name Dose Route Start Last Admin Trade Name Freq PRN Reason Stop Dose Admin Aspirin 81 mg 10/11/19 09:00 10/11/19 08:33 Aspirin Chewable PO 81 mg DAILY NBA Administration Atorvastatin Calcium 40 mg 10/10/19 21:00 10/10/19 21:04 Lipitor PO 40 mg HS NBA Administration Cyanocobalamin 1,000 mcg 10/11/19 09:00 10/11/19 08:33 Vitamin B-12 PO 1,000 mcg DAILY NBA Administration Insulin Glargine 15 units/ 0.15 mls @ 0 mls/hr 10/10/19 21:00 10/10/19 21:19 Miscellaneous Medication SC 0.15 mls HS NBA Administration Metformin HCl 500 mg 10/11/19 08:00 10/11/19 18:12 Glucophage PO 500 mg BID-WM NBA Administration Montelukast Sodium 10 mg 10/10/19 21:00 10/10/19 21:04 Singulair PO 10 mg HS NBA Administration Oxybutynin Chloride 15 mg 10/11/19 09:00 10/11/19 08:37 Ditropan Xl PO 15 mg DAILY NBA Administration Pantoprazole Sodium 40 mg 10/11/19 09:00 10/11/19 08:33 Protonix PO 40 mg DAILY NBA Administration Polyethylene Glycol 17 gm 10/11/19 09:00 10/11/19 08:33 Miralax PO 17 gm DAILY NBA Administration Senna/Docusate Sodium 1 tab 10/10/19 21:00 10/11/19 08:33 Senokot S PO 1 tab BID NBA Administration Trazodone HCl 100 mg 10/10/19 21:00 10/10/19 21:18 Desyrel PO 100 mg HS NBA Administration - Exam General Appearance: NAD, awake alert Eye: PERRL, anicteric sclera ENT: normocephalic atraumatic, no oropharyngeal lesions Neck: supple, symmetric, no JVD, no thyromegaly Heart: RRR, no murmur, no gallops, no rubs, normal peripheral pulses Respiratory: CTAB, no wheezes, no rales, no ronchi Gastrointestinal: soft, non-tender, non-distended, normal bowel sounds Extremities: no cyanosis, no clubbing, no edema Skin: normal turgor, no lesions Neurological: cranial nerve grossly intact, no new deficit Musculoskeletal: normal tone, generalized weakness Psychiatric: normal affect, A&O x 3 Hosp A/P (1) Abdominal pain Code(s): R10.9 - UNSPECIFIED ABDOMINAL PAIN Status: Acute Qualifiers: Abdominal location: generalized Qualified Code(s): R10.84 - Generalized abdominal pain Plan: Resolving with multiple BM's (2) Constipation Code(s): K59.00 - CONSTIPATION, UNSPECIFIED Status: Acute Qualifiers: Constipation type: slow transit constipation Qualified Code(s): K59.01 - Slow transit constipation Plan: See above (3) BPH (benign prostatic hyperplasia) Code(s): N40.0 - BENIGN PROSTATIC HYPERPLASIA WITHOUT LOWER URINRY TRACT SYMP Status: Chronic Qualifiers: Lower urinary tract symptom detail: urinary obstruction (4) GERD (gastroesophageal reflux disease) Code(s): K21.9 - GASTRO-ESOPHAGEAL REFLUX DISEASE WITHOUT ESOPHAGITIS Status: Chronic Qualifiers: Esophagitis presence: without esophagitis Qualified Code(s): K21.9 - Gastro -esophageal reflux disease without esophagitis (5) HTN (hypertension) Code(s): I10 - ESSENTIAL (PRIMARY) HYPERTENSION Status: Chronic Qualifiers: Hypertension type: essential hypertension Qualified Code(s): I10 - Essential (primary) hypertension - Plan PT/OT, social service liaison, out of bed/ambulate, DVT proph w/SCDs Stable currently Continue bowel regimen OOB with PT Awaiting approval for [facility] Resume home BP meds Likely d/c in 24h
[2019-10-11] MEDS: Insulin Glargine 15 UNITS in Pre-Filled Syringe 1 EACH SC SCH (21:40)
[2019-10-11] MEDS: traZODone HCl 50 MG TAB PO SCH (23:03)
[2019-10-11] MEDS: Montelukast Sodium 10 mg Tablet PO SCH (23:03)
[2019-10-11] MEDS: Atorvastatin Calcium 40 MG TAB PO SCH (23:04)
[2019-10-12] MEDS: metFORMIN 500 MG TAB PO SCH (08:38)
[2019-10-12] MEDS: Oxybutynin ER 5 MG TAB PO SCH (08:38)
[2019-10-12] MEDS: Aspirin Chewable 81 MG TAB PO SCH (08:38)
[2019-10-12] MEDS: Polyethylene Glycol 3350 17 GM Packet PO SCH (08:38)
[2019-10-12] MEDS: Cyanocobalamin (Vitamin B-12) 1,000 MCG TAB PO SCH (08:38)
[2019-10-12] MEDS: Senokot S 8.6-50 MG TAB PO SCH (08:39)
--- NOTE | 2019-10-12 11:19 | DIS ---
DATE OF ADMISSION: 10/08/2019 DATE OF DISCHARGE: 10/12/2019 DISCHARGE DIAGNOSES: 1. Abdominal pain secondary to constipation, improved. 2. Constipation, resolving. 3. Urinary retention with right hydronephrosis/hydroureter secondary to obstruction from constipation. 4. Urinary retention, status post suprapubic catheter exchange on 10/09/2019. 5. Benign prostatic hyperplasia. 6. Gastroesophageal reflux disease. 7. Hypertension. 8. Deconditioning. 9. Diabetes mellitus type 2, insulin requiring. PERTINENT LABORATORY DATA AND X-RAY FINDINGS: Potassium ranged between 3.9 to 5.3. Creatinine ranged between 0.77 to 0.97. Troponin-I negative x3. CBC showed a hemoglobin of 13.4, hematocrit 41. CT of the brain without contrast, dated 10/08/2019, showed no acute intracranial process. CT angiogram of the [facility], dated 10/08/2019, showed no significant stenosis or occlusion. Portable chest x-ray, dated 10/08/2019, showed no acute process. Two views of the left hip, dated 10/08/2019, showed no acute fracture or dislocation. Abdominal radiographs, dated 10/08/2019, showed moderate retained fecal material in the ascending colon and rectum. Mild right hydronephrosis. CT of the abdomen and pelvis, dated 10/08/2019, showed right hydronephrosis/hydroureter. Evidence of fecal impaction with rectum measuring 7.[address] of the pelvis, dated 10/08/2019, showed partial obstruction of the right ureter secondary to suprapubic catheter tip extending into the right UVJ resulting in obstruction. MRI of the brain, dated 10/09/2019, showed no acute intracranial process. MRI of the lumbar spine, dated 10/09/2019, showed moderate right-sided hydronephrosis/hydroureter. No central canal stenosis or foraminal stenosis. Thoracic spine MRI, dated 10/09/2019, showed focal disk protrusion on the right at T2 on T3. Otherwise, negative findings. HOSPITAL COURSE: The patient was initially admitted after presenting with abdominal pain, left lower extremity weakness, nausea, vomiting, and back pain. The patient underwent extensive evaluation including multiple imaging studies showing evidence of fecal impaction and constipation with associated right hydronephrosis/hydroureter in the context of chronic suprapubic catheter with obstruction of the right ureter on CT imaging. The patient was evaluated by the Urology Service with exchange of the suprapubic catheter on 10/09/2019. The patient underwent aggressive bowel regimen with overall evacuation of retained stool during the hospital course. The patient underwent extensive evaluation including MRI of the spine showing no focal stenosis to explain left lower extremity weakness. Likely, the patient's left lower extremity weakness is due to deconditioning and poor ambulatory status. Due to the patient's overall comorbid status and deconditioned state, the patient was deemed an appropriate candidate for ongoing skilled care. The patient has been approved to transfer to group home care on 10/12/2019. I have examined the patient at the time of discharge and discussed followup instructions. The patient verbalized understanding and agreement ready for discharge on 10/12/2019. DISCHARGE MEDICATIONS: 1. Aspirin 81 mg p.o. daily. 2. Lipitor 40 mg p.o. at bedtime. 3. Calcium carbonate one tablet p.o. b.i.d. 4. Vitamin B12 of 500 mcg p.o. daily. 5. Colace 100 mg p.o. at bedtime. 6. Levemir 15 units subcutaneously at bedtime. 7. Humalog insulin 5 units subcutaneously t.i.d. with meals. 8. Metformin 500 mg p.o. b.i.d. 9. Singulair 10 mg p.o. daily. 10. Oxybutynin chloride 15 mg p.o. daily. 11. Trazodone 100 mg p.o. at bedtime. 12. Protonix 40 mg p.o. daily. FOLLOWUP: The patient may follow up with Dr. Ross with Urology Service. CONDITION ON DISCHARGE: Fair. ACTIVITY: Ad rajinder, rolling walker with contact guard assistance. DIET: ADA. CODE STATUS: Full. DISPOSITION: Discharged to [facility] on 10/12/2019. TIME SPENT: Total time preparing and coordinating discharge, 35 minutes. Job ID: [id number]
[2019-10-12 11:51] VITALS: BP 104/61; TEMP 98.6
== END 2019-10-12 12:12 | DRG 389 ==
LOC: EDBD 12:51 → ERS 12:51 → INTOOBSV 18:47 → OBSVTOIN 18:47 → 2SE 18:47
PROVIDERS: ADMIT Internal Medicine; ATTEND Internal Medicine
DX: K56.41 Fecal impaction (principal); N13.1 Hydronephrosis with ureteral stricture, not elsewhere classified; N40.1 Benign prostatic hyperplasia with lower urinary tract symptoms; R33.8 Other retention of urine; K21.9 Gastro-esophageal reflux disease without esophagitis; I10 Essential (primary) hypertension; E11.9 Type 2 diabetes mellitus without complications; M62.81 Muscle weakness (generalized); R29.715 NIHSS score 15; F31.9 Bipolar disorder, unspecified; Z86.73 Personal history of transient ischemic attack (TIA), and cerebral infarction without residual deficits; T83.098A Other mechanical complication of other urinary catheter, initial encounter; Y84.6 Urinary catheterization as the cause of abnormal reaction of the patient, or of later complication, without mention of misadventure at the time of the procedure; Z88.0 Allergy status to penicillin
CPT/HCPCS: 36415; 36416; 70450; 70496; 70498; 70551; 71045; 72157; 72158; 72192; 74018; 74176; 80048; 80053; 81003; 81015; 84484; 85025; 85610; 85730; 87077; 87086; 87186; 93005; 96372; 96374; 99284; A9579; C9113; J0696; J1650; J1815; J2001; J2405; Q0163; Q9967